=== PATIENT | male | born 1930 | race Caucasian/White ===

== ENCOUNTER 2017-03-17 09:49 | Emergency (ER) | payer MEDICARE, BC ==
[2017-03-17 10:43] LABS: Basophils % (A) 0 %; CH 32.1; CHCM 32.8; Eosinophils # (A) 0.1 k/uL (0-0.7); Eosinophils % (A) 3 %; HCT 37.9 % (39.0-53.0); HDW 2.25; HGB 12.1 gm/dL (13.0-17.5); Luc # (Auto) 0.24; Luc % (Auto) 4; Lymphocytes % (A) 19 %; MCH 31.6 pg (25.0-35.0); MCHC 32.1 g/dL (31.0-37.0); MCV 98.4 fL (80.0-100.0); Mean Platelet Volume 6.9; Monocytes # (A) 0.4 k/uL (0-1.0); Monocytes % (A) 8 %; Neutrophils # (A) 3.6 k/uL (1.3-7.7); Neutrophils % (A) 66 %; RBC 3.85 m/uL (4.30-5.90); RDW 13.3 % (11.5-15.5); WBC 5.4 k/uL (3.8-10.6)
--- NOTE | 2017-03-17 10:46 | ED ---
SOB HPI - General Chief Complaint: Shortness of Breath Stated Complaint: sob, leg pain Time Seen by Provider: 03/17/17 10:10 Source: patient, RN notes reviewed Mode of arrival: wheelchair Limitations: no limitations - History of Present Illness Initial Comments: This is a 86-year-old male who was sent over by his doctor for evaluation for possible pulmonary embolism or DVT. Patient has had exertional dyspnea for several years but apparently sees somewhat worse with occasional dry cough. He denies any overt fevers chills or sweats he does have increased edema to his lower extremities especially on the right he denies any calf tenderness however. He does state he tries a lot for extended periods of time. He is on a baby aspirin every day but no other anticoagulants. He denies any fevers chills sweats phlegm production. MD Complaint: shortness of breath - Related Data Home Medications Medication Instructions Recorded Confirmed Metoprolol Succinate [Toprol XL] 12.5 mg PO DAILY 09/21/14 03/17/17 Multivitamins, Thera [Multivitamin] 1 tab PO DAILY 09/21/14 03/17/17 Omeprazole [PriLOSEC] 20 mg PO DAILY 09/21/14 03/17/17 Simvastatin [Zocor] 20 mg PO HS 09/21/14 03/17/17 Symbicort(Dose Unknown) 2 puff INHALATION RT-BID 09/21/14 03/17/17 Terazosin [Hytrin] 2 mg PO HS 09/21/14 03/17/17 Allergies Allergy/AdvReac Type Severity Reaction Status Date / Time morphine Allergy Unknown Verified 03/17/17 10:50 Review of Systems ROS Statement: Those systems with pertinent positive or pertinent negative responses have been documented in the HPI. ROS Other: All systems not noted in ROS Statement are negative. Past Medical History Past Medical History: COPD, Osteoarthritis (OA), Prostate Disorder Additional Past Medical History / Comment(s): varicose veins, leg edema, emphysema, gall stones, kidney stone History of Any Multi-Drug Resistant Organisms: None Reported Past Surgical History: Heart Catheterization With Stent, Orthopedic Surgery Additional Past Surgical History / Comment(s): deviated septum, rt ear drum( perforated),varicose vein surgery , arthroscopy left knee Past Anesthesia/Blood Transfusion Reactions: No Reported Reaction Date of Last Stent Placement:: 1999 Past Psychological History: No Psychological Hx Reported Smoking Status: Former smoker Past Alcohol Use History: None Reported Past Drug Use History: None Reported - Past Family History Son(s) Family Medical History: Cancer General Exam - General Exam Comments Initial Comments: This is a well-developed well-nourished awake alert oriented times 3 male Limitations: no limitations General appearance: alert, in no apparent distress Head exam: Present: atraumatic, normocephalic, normal inspection Eye exam: Present: normal appearance, PERRL, EOMI. Absent: scleral icterus, conjunctival injection, periorbital swelling ENT exam: Present: normal exam, mucous membranes moist Neck exam: Present: normal inspection. Absent: tenderness, meningismus, lymphadenopathy Respiratory exam: Present: normal lung sounds bilaterally. Absent: respiratory distress, wheezes, rales, rhonchi, stridor Cardiovascular Exam: Present: regular rate, normal rhythm, normal heart sounds, other (Occasional extrasystole). Absent: systolic murmur, diastolic murmur, rubs, gallop, clicks GI/Abdominal exam: Present: soft, normal bowel sounds. Absent: distended, tenderness, guarding, rebound, rigid Extremities exam: Present: normal inspection, full ROM, normal capillary refill , pedal edema, other (Patient does demonstrate bilateral lower extremity edema more on the right than the left is greater circumference of the right Than the left no tenderness however no palpable cords. He does have support stockings that he has been wearing.). Absent: tenderness, joint swelling, calf tenderness Back exam: Present: normal inspection Neurological exam: Present: alert, oriented X3, CN II-XII intact Psychiatric exam: Present: normal affect, normal mood Skin exam: Present: warm, dry, intact, normal color. Absent: rash Course Vital Signs 03/17/17 03/17/17 10:05 12:53 Temperature 97.9 F Pulse Rate 59 L 69 Respiratory 20 20 Rate Blood Pressure 130/60 173/73 O2 Sat by Pulse 97 98 Oximetry Medical Decision Making - Medical Decision Making I did discuss findings patient he will be discharged looking findings. He is follow up with his doctor as planned and return when necessary - Lab Data Result diagrams: 03/17/17 10:25 03/17/17 10:25 Lab Results 03/17/17 03/17/17 03/17/17 Range/Units 10:25 10:25 10:25 WBC 5.4 (3.8-10.6) k/uL RBC 3.85 L (4.30-5.90) m/uL Hgb 12.1 L (13.0-17.5) gm/dL Hct 37.9 L (39.0-53.0) % MCV 98.4 (80.0-100.0) fL MCH 31.6 (25.0-35.0) pg MCHC 32.1 (31.0-37.0) g/dL RDW 13.3 (11.5-15.5) % Plt Count 226 (150-450) k/uL Neutrophils % 66 % Lymphocytes % 19 % Monocytes % 8 % Eosinophils % 3 % Basophils % 0 % Neutrophils # 3.6 (1.3-7.7) k/uL Lymphocytes # 1.0 (1.0-4.8) k/uL Monocytes # 0.4 (0-1.0) k/uL Eosinophils # 0.1 (0-0.7) k/uL Basophils # 0.0 (0-0.2) k/uL PT (9.0-12.0) sec INR (<1.1) APTT (22.0-30.0) sec D-Dimer (<0.60) mg/L FEU Sodium 138 (137-145) mmol/L Potassium 4.3 (3.5-5.1) mmol/L Chloride 103 (98-107) mmol/L Carbon Dioxide 26 (22-30) mmol/L Anion Gap 9 mmol/L BUN 14 (9-20) mg/dL Creatinine 0.68 (0.66-1.25) mg/dL Est GFR (MDRD) Af Amer >60 (>60 ml/min/1.73 sqM) Est GFR (MDRD) Non-Af >60 (>60 ml/min/1.73 sqM) Glucose 98 (74-99) mg/dL Calcium 9.6 (8.4-10.2) mg/dL Magnesium 2.0 (1.6-2.3) mg/dL Total Bilirubin 1.5 H (0.2-1.3) mg/dL AST 19 (17-59) U/L ALT 20 L (21-72) U/L Alkaline Phosphatase 112 (38-126) U/L Total Creatine Kinase 36 L (55-170) U/L CK-MB (CK-2) 0.4 (0.0-2.4) ng/mL CK-MB (CK-2) Rel Index 1.1 Troponin I <0.012 (0.000-0.034) ng/mL NT-Pro-B Natriuret Pep pg/mL Total Protein 6.7 (6.3-8.2) g/dL Albumin 3.8 (3.5-5.0) g/dL 03/17/17 03/17/17 Range/Units 10:25 10:45 WBC (3.8-10.6) k/uL RBC (4.30-5.90) m/uL Hgb (13.0-17.5) gm/dL Hct (39.0-53.0) % MCV (80.0-100.0) fL MCH (25.0-35.0) pg MCHC (31.0-37.0) g/dL RDW (11.5-15.5) % Plt Count (150-450) k/uL Neutrophils % % Lymphocytes % % Monocytes % % Eosinophils % % Basophils % % Neutrophils # (1.3-7.7) k/uL Lymphocytes # (1.0-4.8) k/uL Monocytes # (0-1.0) k/uL Eosinophils # (0-0.7) k/uL Basophils # (0-0.2) k/uL PT 10.8 (9.0-12.0) sec INR 1.1 (<1.1) APTT 25.9 (22.0-30.0) sec D-Dimer 1.07 H (<0.60) mg/L FEU Sodium (137-145) mmol/L Potassium (3.5-5.1) mmol/L Chloride (98-107) mmol/L Carbon Dioxide (22-30) mmol/L Anion Gap mmol/L BUN (9-20) mg/dL Creatinine (0.66-1.25) mg/dL Est GFR (MDRD) Af Amer (>60 ml/min/1.73 sqM) Est GFR (MDRD) Non-Af (>60 ml/min/1.73 sqM) Glucose (74-99) mg/dL Calcium (8.4-10.2) mg/dL Magnesium (1.6-2.3) mg/dL Total Bilirubin (0.2-1.3) mg/dL AST (17-59) U/L ALT (21-72) U/L Alkaline Phosphatase (38-126) U/L Total Creatine Kinase (55-170) U/L CK-MB (CK-2) (0.0-2.4) ng/mL CK-MB (CK-2) Rel Index Troponin I (0.000-0.034) ng/mL NT-Pro-B Natriuret Pep 261 pg/mL Total Protein (6.3-8.2) g/dL Albumin (3.5-5.0) g/dL - EKG Data -: EKG Interpreted by Me EKG shows normal: sinus rhythm (Sinus rhythm at 65. Interval was 72 QRS duration 86 daily since QTC of 432/449 to QA changes occasional PVCs.) - Radiology Data Radiology results: report reviewed (I did review the imaging and reports no acute findings. The patient does demonstrate a abdominal aortic aneurysm which she is very aware of. His been followed with this for a long time. No other findings of acute embolism ), image reviewed Disposition Clinical Impression: Chronic obstructive pulmonary disease (COPD), Feared condition not demonstrated Disposition: HOME SELF-CARE Condition: Good Instructions: COPD (Chronic Obstructive Pulmonary Disease) (ED) Referrals: Arjun Arita MD [Primary Care Provider] - 1-2 days
[2017-03-17 10:58] LABS: ALT 20 U/L (21-72); AST 19 U/L (17-59); Alkaline Phosphatase 112 U/L (38-126); Anion Gap 9 mmol/L; Blood Urea Nitrogen 14 mg/dL (9-20); Calcium 9.6 mg/dL (8.4-10.2); Carbon Dioxide 26 mmol/L (22-30); Chloride 103 mmol/L (98-107); Glucose 98 mg/dL (74-99); Non-African American GFR(MDRD) >60 (>60 ml/min/1.73 sqM); Potassium 4.3 mmol/L (3.5-5.1); Sodium 138 mmol/L (137-145); Total Bilirubin 1.5 mg/dL (0.2-1.3); Total Protein 6.7 g/dL (6.3-8.2)
[2017-03-17 11:03] LABS: INR 1.1 (<1.1); Partial Thromboplastin Time 25.9 sec (22.0-30.0); Prothrombin Time 10.8 sec (9.0-12.0)
--- NOTE | 2017-03-17 11:04 | XR ---
EXAMINATION TYPE: XR chest 2V DATE OF EXAM: 03/17/2017 COMPARISON: Chest x-ray August 03, 2016. HISTORY: Difficulty in breathing. Bilateral leg swelling. TECHNIQUE: Frontal and lateral views of the chest are obtained. FINDINGS: There is background chronic emphysematous change and pulmonary fibrosis. Some new mild cent ral vascular congestion is felt present. There is no focal air space opacity, pleural effusion, or pn eumothorax seen. The cardiac silhouette size is stable and mildly enlarged with atherosclerotic thor acic aorta. Bridging osteophytes in thoracic spine are noted. IMPRESSION: Chronic emphysematous change and mild cardiomegaly with suspected new mild central vascu lar congestion, favor CHF exacerbation.
[2017-03-17 11:08] LABS: Creatine Kinase 36 U/L (55-170)
[2017-03-17 11:19] LABS: Creatine Kinase MB 0.4 ng/mL (0.0-2.4); Troponin I <0.012 ng/mL (0.000-0.034)
--- NOTE | 2017-03-17 11:52 | US ---
EXAMINATION TYPE: US venous doppler duplex LE BI DATE OF EXAM: 03/17/2017 11:44 AM COMPARISON: NONE CLINICAL HISTORY: Pain x 3 months. SIDE PERFORMED: bilateral TECHNIQUE: The lower extremity deep venous system is examined utilizing real time linear array sonog silvia with graded compression, doppler sonography and color-flow sonography. VESSELS IMAGED: External Iliac Vein (EIV) Common Femoral Vein Deep Femoral Vein Greater Saphenous Vein * Femoral Vein Popliteal Vein Small Saphenous Vein * Proximal Calf Veins (* superficial vessels) Right Leg: Negative for DVT Left Leg: Negative for DVT Grayscale, color doppler, spectral doppler imaging performed of the deep veins of the lower extremiti es. There is normal flow, compressibility, vascular waveforms bilaterally. IMPRESSION: No ultrasound evidence for acute DVT in either lower extremity.
[2017-03-17] MEDS ORDERED: RX INFO: IV CONTRAST WAS GIVEN 1 EACH MISC MISCELLANE PRN (12:10)
[2017-03-17 12:54] VITALS: PULSE 69
--- NOTE | 2017-03-17 13:27 | CT ---
EXAMINATION TYPE: CT angio chest DATE OF EXAM: 03/17/2017 COMPARISON: NONE HISTORY: SOB, elevated d dimer CT DLP: 592 mGycm Automated exposure control for dose reduction was used. CONTRAST: CTA scan of the thorax is performed with IV Contrast, patient injected with 100 mL of Omnipaque 350, pulmonary embolism protocol. MIP images are created and reviewed. 3D reconstructed images are creat ed on an independent workstation and reviewed. FINDINGS: LUNGS: The lungs are grossly clear, there is no concerning parenchymal mass or nodule identified. C entrilobular emphysematous changes are present. There is some dependent atelectatic change. Interstit ial changes are present as well. There is no pleural effusion or pneumothorax seen. The tracheobronc hial tree is patent. AORTA: No additional significant abnormality is seen. MEDIASTINUM: There is satisfactory enhancement of the pulmonary artery and its branches, there is no CT evidence for pulmonary embolism. Subcarinal no shows borderline increased size. No pericardial eff usion is seen. Shotty nodes are present within the mediastinum, prevascular space, noted in the right paratracheal location shows central calcification. Coronary artery calcifications are present. OTHER: Abdominal aortic aneurysm present in the infrarenal location and incompletely evaluated. IMPRESSION: ABDOMINAL AORTIC ANEURYSM. Pulmonary embolism is not evident. Emphysema. Additional findings above.
[2017-03-17 14:47] VITALS: BP 159/70; RESP 18; TEMP 96.9
== END 2017-03-17 14:47 | disposition home or self-care (01) ==
LOC: EC 09:49
DX: J44.9 Chronic obstructive pulmonary disease, unspecified (principal); Z71.1 Person with feared health complaint in whom no diagnosis is made; I71.4 Abdominal aortic aneurysm, without rupture; I49.3 Ventricular premature depolarization; R60.0 Localized edema; N42.9 Disorder of prostate, unspecified; Z87.891 Personal history of nicotine dependence; Z79.51 Long term (current) use of inhaled steroids; Z79.899 Other long term (current) drug therapy; Z88.5 Allergy status to narcotic agent
CPT/HCPCS: 99285; 36415; 93005; 85379; 83880; 80053; 82550; 82553; 83735; 84484; 85025; 85610; 85730; 87040; 71020; 93970; 71275; Q9967